=== PATIENT | male | born 1965 | race Caucasian/White ===

== ENCOUNTER 2018-02-10 20:28 | Emergency (ER) | payer SELFPAY ==
[2018-02-10 20:43] VITALS: BP 132/91
--- NOTE | 2018-02-10 21:19 | Diagnostic Imaging Report ---
KENNA VIVEROS (FILM ARCHIVIST) - ER [facility] [id number] [facility] [address] [address] Report Submission Date: Feb 10, 2018 9:14:52 PM CDT Patient Study Name: LYDIA MANZO Date: Feb 10, 2018 8:55:21 PM CDT Modality Type: DX Gender: M Description: UPPER EXTREMITY : 65 Institution: [facility] Physician: KENNA VIVEROS (FILM ARCHIVIST) - ER Right hand three views History: 1st and 2nd finger tip crush injury Findings: The middle finger tip is swollen. There is no evidence of right hand fracture or dislocation. Electronically signed on Feb 10, 2018 9:14:52 PM CDT by: Tyson ANTHONY
[2018-02-10] MEDS: BUPIVACAINE HCL/PF 5 MG/ML 10ML VIAL IJ ONE (21:23)
[2018-02-10] MEDS: DIPH,PERTUSS(ACELL),TET VAC/PF 0.5 ML DISP.SYRIN IM ONE (21:23)
--- NOTE | 2018-02-10 21:34 | ED Physician Documentation ---
Hand Injury - HISTORIAN Historian: patient - HPI Stated Complaint: Finger lacs Chief Complaint: Hand Injury Onset: just prior to arrival Where: other (camper) Location of Injury: R hand Modifying Factors: pain on movement Further Comments: yes (52 year old male patient presents with lacerations to right hand. Patient states the awning from the camper fell and smashed his right hand. Patient reports drinking beer today.) - ROS CONST: no problems GI/: denies: nausea, vomiting NEURO: none CVS/RESP: none EYES/ENT: none MS/SKIN/LYMPH: none - PAST HX Past History: Lt handed Immunizations: tetanus (given in ER ) Allergies/Adverse Reactions: Allergies Allergy/AdvReac Type Severity Reaction Status Date / Time No Known Allergies Allergy Verified 02/10/18 20:48 Home Medications: Ambulatory Orders Medication Instructions Recorded NK [NK] 02/10/18 - SOCIAL HX Smoking History: cigarettes Alcohol Use: heavy - FAMILY HX Family History: denies: none - VITAL SIGNS Vital Signs: Vital Signs Temp Pulse Resp BP Pulse Ox 97.6 F 73 16 132/91 97 02/10/18 20:35 02/10/18 20:35 02/10/18 20:35 02/10/18 20:35 02/10/18 20:35 - REVIEWED ASSESSMENTS Nursing Assessment Reviewed: Yes Vitals Reviewed: Yes Procedures Wound Location: other (right hand) Sterile Dressing Applied?: Yes Progress: Procedure Note laceration: #1 Length: 2.5cm laceration Location: right 3rd digit volar aspect Wound cleaned with chlorhexidine and NS Irrigated with 500 NS; no foreign body noted; no tendon visualized Closed using sterile technique, interrupted sutures 5.0 ethilon x 7 stitches Wound edges well approximated. #2 Length: 2.0 cm laceration Location: Thumb Wound cleaned with chlorhexidine and NS; Irrigated with 300ml NS; no foreign body noted Closed using sterile technique, interrupted sutures 5.0 ethilon x 4 stitches Wound edges well approximated. Tetanus: Given in Er Patient tolerated procedure well; reviewed discharge instructions - verbalized understanding. Progress - Progress Progress: Digital block to right thumb and right 3rd digit with bupivicaine .5% - patient tolerated well. ED Results Lab/Radiology - Orders Orders: ED Orders Category Date Time Status Cleanse with NS and Chlorhexid 1T Care 02/10/18 20:55 Active HAND 3 VIEWS OR MORE [RAD] Stat Exams 02/10/18 Completed Bupivacaine HCl/Pf [Marcaine 0.5%] Med 02/10/18 20:43 Discontinued 15 mg IJ NOW ONE Diph,Pertuss(Acell),Tet Vac/Pf [Adacel] Med 02/10/18 20:39 Discontinued 0.5 ml IM .ONCE ONE Hand Injury Physical Exam - Exam General Appearance: mild distress, other (intoxicated) Hand: other (lacerations to right thumb 2 cm; right 3rd digit volar aspect 2.5 cm; right 4th digit dorsal aspect 1.5 cm superficial) Wrist: normal inspection, non-tender, no evidence of injury, normal ROM Neuro: sensation nml, motor nml Vascular: no vascular compromise Tendons: tendon function nml. No: tendon visualized Forearm/Elbow/Arm: uninjured above wrist Skin: normal color, warm/dry, NR, INT, PAL, DR Resp/CVS: chest non-tender, breath sounds nml, heart sounds nml, no resp. distress, lungs clear, reg. rate & rhythm Abdomen: non-tender, no organomegaly, nml bowel sounds, no distention Discharge Clincal Impression: Laceration of thumb Qualifiers: Encounter type: initial encounter Damage to nail status: without damage Foreign body presence: without foreign body Laterality: right Qualified Code(s) : S61.011A - Laceration without foreign body of right thumb without damage to nail, initial encounter Laceration of middle finger Qualifiers: Encounter type: initial encounter Damage to nail status: without damage Foreign body presence: without foreign body Laterality: right Qualified Code(s) : S61.212A - Laceration without foreign body of right middle finger without damage to nail, initial encounter Abrasion of right ring finger Qualifiers: Encounter type: initial encounter Qualified Code(s): S60.414A - Abrasion of right ring finger, initial encounter Referrals: Primary Doctor,No [Primary Care Provider] - 2 Days Additional Instructions: Keep the wound clean and dry until it has healed. You can wash or shower after 24 hours. Do not soak the wound in water and make sure it is dry afterwards (gently pat the area dry with a clean towel). Do not get into a swimming pool, hot tub, sanchez or river until your stitches are removed. To remove your dressing, gently pull it off. If needed, you can dampen it with water then gently pull it off. Clean the laceration twice a day with hibiclens and rinse with water clean away any scabbed area Apply thin coat of antibiotic ointment after cleaning the wound. Cover with non-adherent bandage if able. If you have pain, take simple pain relief medication such as Tylenol or ibuprofen. If bandages or dressings get wet, they will need to be changed. Call your doctor for any signs of symptom of infection redness, drainage, pain. Have your stitches removed at your doctors office in 7-10 days. Discharged with bactroban ointment apply a thin coat twice a day. Condition: Stable Disposition: 01 HOME, SELF-CARE Decision to Admit: NO Decision Time: 21:33
== END 2018-02-10 21:41 | disposition home or self-care (01) ==
LOC: ED 20:28
DX: S61.011A Laceration without foreign body of right thumb without damage to nail, initial encounter (principal); S61.212A Laceration without foreign body of right middle finger without damage to nail, initial encounter; S60.414A Abrasion of right ring finger, initial encounter; W23.1XXA Caught, crushed, jammed, or pinched between stationary objects, initial encounter; Y92.9 Unspecified place or not applicable; Y93.9 Activity, unspecified; Y99.9 Unspecified external cause status
CPT/HCPCS: 73130; 90715; J3490; 12002; 90471; 96372; 99283; J7030